=== PATIENT | female | born 1945 | race American Indian/Alaskan Native ===

== ENCOUNTER 2018-05-01 15:18 | Emergency (ER) | payer OTHER, MEDICARE ==
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
[2018-05-01 18:58] VITALS: BP 128/80
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
== END 2018-05-01 18:58 | disposition home or self-care (01) ==
LOC: ED 15:18
DX: S16.1XXA Strain of muscle, fascia and tendon at neck level, initial encounter (principal); I10 Essential (primary) hypertension; E78.5 Hyperlipidemia, unspecified; V49.59XA Passenger injured in collision with other motor vehicles in traffic accident, initial encounter; Y93.89 Activity, other specified; Y92.89 Other specified places as the place of occurrence of the external cause; Y99.8 Other external cause status
CPT/HCPCS: 72040